=== PATIENT | female | born 2005 | race Two or more races ===

== ENCOUNTER 2024-10-12 19:48 | Observation (INO) | payer MEDICAID, SELFPAY ==
[2024-10-12 20:02] VITALS: BMI 27.3
[2024-10-12 20:10] VITALS: BP 112/63; PULSE 70; RESP 16; RESP 99; TEMP 36.9
[2024-10-12 20:16] VITALS: TEMP 36.9
== END 2024-10-12 20:52 | disposition home or self-care (01) ==
PROVIDERS: Admitting Provider Student in an Organized Health Care Education/Training Program; Visit Provider Student in an Organized Health Care Education/Training Program
DX: O36.8120 Decreased fetal movements, second trimester, not applicable or unspecified (principal); Z3A.26 26 weeks gestation of pregnancy
CPT/HCPCS: 59025; G0378

== ENCOUNTER 2024-11-22 08:38 | Outpatient (AMB) | payer MEDICAID, SELFPAY ==
[2024-11-22 08:44] VITALS: BP 111/74; PULSE 79; RESP 18; TEMP 36.2; O2SAT 98; BMI 28.3
--- NOTE | 2024-11-22 08:44 | AMB.OBINITIA ---
Vital Signs 11/22/24 08:44 Height 1.52 m Height Method Stated Weight 65.771 kg Weight Measurement Method Standing Scale BMI 28.3 BP 111/74 Blood Pressure Source Automatic Cuff Blood Pressure Location Left Upper Arm Position Sitting Respiration 18 Pulse 79 Pulse Source Monitor Temp 97.2 F Temp Source Oral Pulse Oximetry (%) 98 Oxygen Delivery Method Room Air Allergies/Home Meds Allergies & Medications Allergies No Known Allergies Allergy (Verified 11/22/24 08:45) Medication Reconciliation vits no.130-ferrous fum 27 mg iron-folic acid 800 mcg tablet ( Vitamin) 1 tab PO QDAY 10/12/24 [History Confirmed 11/22/24] Intake Visit Data Collection New Patient or Established: Established Patient (seen at [facility] within 3 years) Reason for Visit:: Seen by Clinical Staff ONLY (RN/MA): No Blood Coordinator Required: No Do You Feel Safe at Home: Yes Authorities Contacted: N/A PCP or OBGYN visit in last 3 months: Yes Date of Last PCP or OBGYN visit: 10/12/24 Hx Now: Yes Are you currently on any form of Control: No Last menstrual period: 03/16/24 Pain Present Currently: No Pain Scale Used: Sahu-Velasco/Numerical Pain scale:: 0 Smoking Status Smoking Status: Never smoker Questionnaires Covid-19 Vaccine Questionnaire Has patient been vacinated for Covid-19 Have you been vacinated for Covid-19: Yes PHQ-9 PHQ-2 Over the last 2 weeks, how often have you been bothered by any of the following problems? 1. Little interest or pleasure in doing things: not at all 2. Feeling down, depressed, or hopeless: not at all Total score: 0 PHQ-9 3. Trouble falling or staying asleep, or sleeping too much: Not at all 4. Feeling tired or having little energy: Not at all 5. Poor appetite or overeating: Not at all 6. Feeling bad about yourself - or that you are a failure or have let yourself or your family down: Not at all 7. Trouble concentrating on things, such as reading the newspaper or watching television: Not at all 8. Moving or speaking so slowly that other people could have noticed? - Or the opposite - being so fidgety or restless that you have been moving around a lot more than usual: not at all 9. Thoughts that you would be better off or of hurting yourself in some way: Not at all Total score: 0 If you checked off any problems, how difficult have these problems made it for you to do your work, take care of things at home, or get along with other people?: not difficult at all Source: Developed by Drs. Feng Leiva, Kari Oscar, Rafiq Ford and colleagues, with an educational krystal from [employer]. Depression screen completed yes Social History Living Situation History Marital Status: Lives With: Spouse Housing: House Tobacco History Smoking Status: Never smoker Alcohol History Alcohol Intake: Never Domestic Abuse History Do You Feel Safe at Home: Yes Past Medical History Past Medical History Have you ever been diagnosed with any of the following: History of Present Illness HPI Narrative 18-year-old 2 para 0 for first visit at [facility] OB clinic. Patient has been followed at [facility] care. Her first visit [facility] was at 11 weeks 3. Last period April 11, 2024. Estimated due date 09/18/2024. First ultrasound was in August patient was 19 weeks and this confirmed dates. And then patient had a 23-week ultrasound in September that also confirm dates. She denies social habits. Denies surgery. Denies chronic illness. Patient reports good movement. Denies contractions. Patient's thus far is significant for gestational diabetes. Patient has been following GDM diet and glucose monitoring 4 times a day. Patient reports good compliance with her glucoses. Reports that sugars are within limits 98% of the time. EFW is at the 28th percentile. Patient is O+, antibody screen negative, RPR nonreactive, rubella immune, hepatitis B negative, hep C negative, HIV negative, her GC and Chlamydia were negative. Drug screen negative. Last A1c 5.3. Screening and NIPT were negative. Denies labor signs OB Initial Visit OB Flowsheet OB Flowsheet Initial Weight: Not Recorded Date <del>?</del> EGA Weight Edema CTX Effacement BP Fundal ht Pres Dilation Effacement Station Visit Note Alb Glu FHR Mov 11/22/24 <del>?</del> 32w 1d 65.771 kg absent absent 111/74 31 cephalic 18-year-old 2 para 0 for first visit OB clinic. Patient has GDM diet-controlled. Blood sugars are within range 95% of the goal. Patient is a transfer from [facility]. Doing well. Reports movement. No OB complaints. Hemoglobin A1c today. Continue GDM diet. Continue with monitoring glucose 4 times a day. Schedule NST BPP weekly. Reviewed movement counts. 141 active Menstrual History Menstrual reliability: definite Flow: normal Menstrual regularity: regular Monthly: Yes Age at menarche: 11 On control pills at conception: No OB History : 2 Para: 0 Hx # Pregnancies: 0 Hx Total # of Abortions (Spontaneous & Elective): 1 # of Living Children: 0 Infection History & Risk Evaluation History of STDs: none HIV risk evaluation: low risk Hepatitis B risk evaluation: low risk Patient or partner has history of Genital Herpes: No Varicella/chicken pox status: immunized Genetic Screening & History Genetic Screening/Teratology Counseling - Includes patient, baby's father, or anyone in either family with: 1. Patient's age 35 years or older as of estimated date of delivery: No 2. Thalassemia (Wallisian, Fijian, Mediterranean, or Background); MCV less than 80: No 3. Neural Tube Defect (Meningomyelocele, Spina Bifida, or Anencephaly): No 4. Congenital Heart Defect: No 5. Down Syndrome: No 6. Rodney-Sachs (Ashkenazi Episcopal, Cajun, Nepali Lithuanian): No 7. Kiana Disease (Ashkenazi Episcopal): No 8. Familial Dysautonomia (Ashkenazi Episcopal): No 9. Sickle Cell Disease or Trait (): No 10. Hemophilia or other blood disorders: No 11. Muscular Dystrophy: No 12. Cystic Fibrosis: No 13. Patillas's Chorea: No 14. Mental Retardation/Autism: No 15. Other inherited genetic or chromosomal disorder: No 16. Maternal Metabolic Disorder (EG,TYPE 1 Diabetes, PKU): No 17. Patient or baby's father had a child with defects not listed above: No 18. Recurrent loss or a stillbirth: No 19. Medications (including supplements, vitamins, herbs or otc drugs)/illicit/recreational drugs/alcohol since last menstrual period: No 20. Any other: No Infection History 1. Live with someone with TB or exposed to TB: No 2. Rash or viral illness since last menstrual period: No 3. Hepatitis B,C: No Other (see comments) Source: [employer] Review of Systems Review of Systems Systems Reviewed: All systems reviewed, normal except as documented Exam General Limitations: no limitations General Appearance: alert, in no apparent distress, comfortable, cooperative, healthy appearing, well developed and well groomed ENT ENT exam: Present normal exam, normal oropharynx and mucous membranes moist Chest Chest inspection: Present normal inspection and symmetric chest wall rise Resp Respiratory exam: Present normal lung sounds bilaterally Card Cardiovascular exam: Present regular rate, normal rhythm and normal heart sounds Abdominal Abdominal exam: Present soft (fh:32, fht 141) and normal bowel sounds Psych Psychiatric exam: Present normal affect and normal mood Assessment & Plan Diagnosis / Problem List (1) Diet controlled gestational diabetes mellitus (GDM) in third trimester: Status: Acute (2) Encounter for supervision of other normal , third trimester: Status: Acute Additional Plan Follow Up: 2 Weeks (f/u ob check) Office Procedures OB Clinic LOC & Office Proc's Nursing/Assessment Patient Status: Established Patient OB Clinic Nursing Assessment: BP Monitoring, Medication Reconciliation, Update PMH in EMR and Vital Signs OB Clinic Coordination of Care: Consent,records obtained, informed consent, Education Simp Pt/Fam, Lab and Imaging orders and Staff clarify orders Established Patient Charge Established Patient Point Assignment: 90 Established Patient Point Charge: EP Level 3 (80-115)
== END 2024-11-22 09:03 | disposition home or self-care (01) ==
LOC: HODSOBC 08:38
PROVIDERS: PCP Advanced Practice Midwife; Referring Provider Advanced Practice Midwife; Supervising Provider Obstetrics & Gynecology; Visit Provider Advanced Practice Midwife
DX: O09.623 Supervision of young multigravida, third trimester (principal); O24.410 Gestational diabetes mellitus in pregnancy, diet controlled; Z3A.32 32 weeks gestation of pregnancy
CPT/HCPCS: 99213; G0463

== ENCOUNTER 2024-12-06 08:59 | Outpatient (AMB) | payer MEDICAID, SELFPAY ==
[2024-12-06 09:03] VITALS: BP 112/75; PULSE 97; RESP 18; TEMP 36.6; O2SAT 98; BMI 28.6
--- NOTE | 2024-12-06 09:03 | AMB.OBVISIT ---
Vital Signs 12/06/24 09:03 Height 1.52 m Height Method Stated Weight 66.224 kg Weight Measurement Method Standing Scale BMI 28.6 BP 112/75 Blood Pressure Source Automatic Cuff Blood Pressure Location Right Upper Arm Position Sitting Respiration 18 Pulse 97 Pulse Source Monitor Temp 97.8 F Temp Source Temporal Artery Scan Pulse Oximetry (%) 98 Oxygen Delivery Method Room Air Allergies/Home Meds Allergies & Medications Allergies No Known Allergies Allergy (Verified 12/06/24 09:04) Medication Reconciliation vits no.130-ferrous fum 27 mg iron-folic acid 800 mcg tablet ( Vitamin) 1 tab PO QDAY 10/12/24 [History Confirmed 12/06/24] Intake Visit Data Collection New Patient or Established: Established Patient (seen at [facility] within 3 years) Reason for Visit:: OBC Do You Feel Safe at Home: Yes Authorities Contacted: N/A PCP or OBGYN visit in last 3 months: Yes Pain Present Currently: No Smoking Status Smoking Status: Never smoker Questionnaires Covid-19 Vaccine Questionnaire Has patient been vacinated for Covid-19 Have you been vacinated for Covid-19: Yes PHQ-9 PHQ-2 Over the last 2 weeks, how often have you been bothered by any of the following problems? 1. Little interest or pleasure in doing things: not at all 2. Feeling down, depressed, or hopeless: not at all Total score: 0 PHQ-9 8. Moving or speaking so slowly that other people could have noticed? - Or the opposite - being so fidgety or restless that you have been moving around a lot more than usual: not at all Source: Developed by Drs. Feng Leiva, Kari Oscar, Rafiq Ford and colleagues, with an educational krystal from [employer]. Depression screen completed yes Social History Living Situation History Lives With: Spouse Housing: House Tobacco History Smoking Status: Never smoker Alcohol History Alcohol Intake: Never Domestic Abuse History Do You Feel Safe at Home: Yes Past Medical History Past Medical History Have you ever been diagnosed with any of the following: Visit OB Visit Log OB Flowsheet Initial Weight: Not Recorded Date <del>?</del> EGA Weight Edema CTX Effacement BP Fundal ht Pres Dilation Effacement Station Visit Note Alb Glu FHR Mov 11/22/24 <del>?</del> 32w 1d 65.771 kg absent absent 111/74 31 cephalic 18-year-old 2 para 0 for first visit OB clinic. Patient has GDM diet-controlled. Blood sugars are within range 95% of the goal. Patient is a transfer from [facility]. Doing well. Reports movement. No OB complaints. Hemoglobin A1c today. Continue GDM diet. Continue with monitoring glucose 4 times a day. Schedule NST BPP weekly. Reviewed movement counts. 141 active 12/06/24 <del>?</del> 34w 1d 66.224 kg absent absent 112/75 34 cephalic compliant with week nst/bpp for + gdm, sugars at goal 95%, continue fkc bid, continue GDM diet, walk 40 minute daily, continue PNV, c/o + URI. GBS NV, no PTL complaints 147 active YOSEPH Calculator Estimated Delivery Date Method Current WG Current Estimate 01/16/25 Ultrasound #1 34w 1d Other Estimates 01/16/25 LMP (Certain) 34w 1d Assessment & Plan Diagnosis / Problem List (1) Encounter for supervision of high risk in third trimester, antepartum: Status: Acute (2) Diet controlled gestational diabetes mellitus (GDM) in third trimester: Status: Acute Plan Continue GDM diet. Increase walking 40 minutes a day. Continue glucose monitoring. Continue weekly NST BPP. kick count twice daily. labor precautions reviewed. GBS next visit Additional Plan Follow Up: 2 Weeks (OBC and GBS) Office Procedures OB Clinic LOC & Office Proc's Nursing/Assessment Patient Status: Established Patient OB Clinic Nursing Assessment: Medication Reconciliation, Update PMH in EMR and Vital Signs OB Clinic Coordination of Care: Complex Care and Chronic Disease 1-5, Education Complex Pt/Fam and Staff clarify orders Established Patient Charge Established Patient Point Assignment: 85 Established Patient Point Charge: EP Level 3 (80-115)
== END 2024-12-06 09:21 | disposition home or self-care (01) ==
LOC: HODSOBC 08:59
PROVIDERS: PCP Obstetrics & Gynecology; Referring Provider Obstetrics & Gynecology; Supervising Provider Obstetrics & Gynecology; Visit Provider Obstetrics & Gynecology
DX: O09.623 Supervision of young multigravida, third trimester (principal); O09.893 Supervision of other high risk pregnancies, third trimester; O24.410 Gestational diabetes mellitus in pregnancy, diet controlled; Z3A.34 34 weeks gestation of pregnancy
CPT/HCPCS: 99213; G0463

== ENCOUNTER 2024-12-20 09:12 | Outpatient (AMB) | payer MEDICAID, SELFPAY ==
[2024-12-20 09:46] VITALS: BP 118/74; PULSE 85; RESP 18; TEMP 36.2; O2SAT 99; BMI 29.5
--- NOTE | 2024-12-20 09:46 | OBCLNT_ITS ---
Vital Signs 12/20/24 09:46 Height 1.52 m Height Method Stated Weight 68.266 kg Weight Measurement Method Standing Scale BMI 29.5 BP 118/74 Blood Pressure Source Automatic Cuff Blood Pressure Location Left Upper Arm Position Sitting Respiration 18 Pulse 85 Pulse Source Monitor Temp 97.2 F Temp Source Oral Pulse Oximetry (%) 99 Oxygen Delivery Method Room Air Allergies/Home Meds Allergies & Medications Allergies No Known Allergies Allergy (Verified 12/20/24 09:47) Medication Reconciliation vits no.130-ferrous fum 27 mg iron-folic acid 800 mcg tablet ( Vitamin) 1 tab PO QDAY 10/12/24 [History Confirmed 12/20/24] Intake Visit Data Collection New Patient or Established: Established Patient (seen at [facility] within 3 years) Reason for Visit:: OBC Seen by Clinical Staff ONLY (RN/MA): No Eyeglass Frames Polisher Required: No Do You Feel Safe at Home: Yes Authorities Contacted: N/A PCP or OBGYN visit in last 3 months: Yes Date of Last PCP or OBGYN visit: 12/14/24 Hx Now: Yes Are you currently on any form of Control: No Pain Present Currently: No Pain Scale Used: Sahu-Velasco/Numerical Pain scale:: 0 Smoking Status Smoking Status: Never smoker Questionnaires Covid-19 Vaccine Questionnaire Has patient been vacinated for Covid-19 Have you been vacinated for Covid-19: Yes PHQ-9 PHQ-2 Over the last 2 weeks, how often have you been bothered by any of the following problems? 1. Little interest or pleasure in doing things: not at all 2. Feeling down, depressed, or hopeless: not at all Total score: 0 PHQ-9 3. Trouble falling or staying asleep, or sleeping too much: Not at all 4. Feeling tired or having little energy: Not at all 5. Poor appetite or overeating: Not at all 6. Feeling bad about yourself - or that you are a failure or have let yourself or your family down: Not at all 7. Trouble concentrating on things, such as reading the newspaper or watching television: Not at all 8. Moving or speaking so slowly that other people could have noticed? - Or the opposite - being so fidgety or restless that you have been moving around a lot more than usual: not at all 9. Thoughts that you would be better off or of hurting yourself in some way: Not at all Total score: 0 If you checked off any problems, how difficult have these problems made it for you to do your work, take care of things at home, or get along with other people?: not difficult at all Source: Developed by Drs. Feng Leiva, Kari Oscar, Rafiq Ford and colleagues, with an educational krystal from [employer]. Depression screen completed yes Social History Living Situation History Lives With: Spouse Housing: House Tobacco History Smoking Status: Never smoker Second Hand Smoke Exposure: No Alcohol History Alcohol Intake: Never Domestic Abuse History Do You Feel Safe at Home: Yes Care OB Visit Log OB Flowsheet Initial Weight: Not Recorded Date -?-?-?-?-?-?-?-?-?-?-?-?- EGA Weight Edema CTX Effacement BP Fundal ht Pres Dilation Effacement Station Visit Note Alb Glu FHR Mov 11/22/24 -?-?-?-?-?-?-?-?-?-?-?-?- 32w 1d 65.771 kg absent absent 111/74 31 cephalic 18-year-old 2 para 0 for first visit OB clinic. Patient has GDM diet-controlled. Blood sugars are within range 95% of the goal. Patient is a transfer from [facility]. Doing well. Reports movement. No OB complaints. Hemoglobin A1c today. Continue GDM diet. Continue with monitoring glucose 4 times a day. Schedule NST BPP weekly. Reviewed movement counts. 141 active 12/06/24 -?-?-?-?-?-?-?-?-?-?-?-?- 34w 1d 66.224 kg absent absent 112/75 34 cephalic compliant with week nst/bpp for + gdm, sugars at goal 95%, continue fkc bid, continue GDM diet, walk 40 minute daily, continue PNV, c/o + URI. GBS NV, no PTL complaints 147 active 12/20/24 -?-?-?-?-?-?-?-?-?-?-?-?- 36w 1d 68.266 kg absent absent 118/74 35 cephalic fetus active, no c/o labor,no leaking,no bleeding. + GDM/diet, continue week NST/BPP, fkc bid, GBS today fetus active, no c/o labor,n o leaking,no bleeding. + GDM/diet, continue week NST/BPP, fkc bid, GBS today, sugar at goal 90%, IOL 01/09/25 156 active YOSEPH Calculator Estimated Delivery Date Method Current WG Current Estimate 01/16/25 Ultrasound #1 36w 1d Other Estimates 01/16/25 LMP (Certain) 36w 1d Comments: 19 yo . LMP 04/11/25. EDC 01/16/25. GDM/diet, week NST/BPP O+,abs-,rpr::nr, rub imm, HBSAG-,HIV-, HC-, GC/CT-, UT-, abn 1 hr gtt, 3 hr gtt high Assessment & Plan Diagnosis / Problem List (1) Encounter for supervision of high risk in third trimester, antepartum: Status: Acute (2) Diet controlled gestational diabetes mellitus (GDM) in third trimester: Status: Acute Additional Assessment GBS, schedule IOL 01/09,continue GDM diet and week NST/BPP, fkc bid. rtc 1 week Additional Plan Follow Up: 1 Week (OBC) Office Procedures OB Clinic LOC & Office Proc's Nursing/Assessment Patient Status: Established Patient OB Clinic Nursing Assessment: BP Monitoring, Medication Reconciliation, Update PMH in EMR and Vital Signs OB Clinic Coordination of Care: Consent,records obtained, informed consent, Lab and Imaging orders and Staff clarify orders Special Needs: Heart tones Established Patient Charge Established Patient Point Assignment: 105 Established Patient Point Charge: EP Level 3 (80-115)
[2024-12-20 10:50] LABS: Bilirubin,Urine Clinitek Negative (Negative); Blood,Urine Clinitek Negative (Negative); Glucose, Urine Clinitek Negative (Negative); Ketones,Urine Clinitek Negative (Negative); Leukocyte Esterase,Urine Clin Negative (Negative); Nitrite,Urine Clinitek Negative (Negative); Protein,Urine Clinitek Negative (Neg - Trace)
== END 2024-12-20 10:05 | disposition home or self-care (01) ==
LOC: HODSOBC 09:12
PROVIDERS: PCP Advanced Practice Midwife; Referring Provider Advanced Practice Midwife; Supervising Provider Advanced Practice Midwife; Visit Provider Advanced Practice Midwife
DX: O09.623 Supervision of young multigravida, third trimester (principal); O09.893 Supervision of other high risk pregnancies, third trimester; O24.410 Gestational diabetes mellitus in pregnancy, diet controlled; Z3A.36 36 weeks gestation of pregnancy
CPT/HCPCS: 81001; 99213; G0463

== ENCOUNTER 2024-12-27 09:00 | Outpatient (AMB) | payer MEDICAID, SELFPAY ==
[2024-12-27 09:23] VITALS: BP 122/76; PULSE 79; RESP 14; TEMP 36.8; O2SAT 96; BMI 30.1
--- NOTE | 2024-12-27 09:23 | OBCLNT_ITS ---
Vital Signs 12/27/24 09:23 Height 1.52 m Height Method Stated Weight 70.023 kg Weight Measurement Method Standing Scale BMI 30.1 BP 122/76 Blood Pressure Source Automatic Cuff Blood Pressure Location Left Upper Arm Position Sitting Respiration 14 Pulse 79 Pulse Source Monitor Temp 98.2 F Temp Source Oral Pulse Oximetry (%) 96 Oxygen Delivery Method Room Air Allergies/Home Meds Allergies & Medications Allergies No Known Allergies Allergy (Verified 12/27/24 09:25) Medication Reconciliation vits no.130-ferrous fum 27 mg iron-folic acid 800 mcg tablet ( Vitamin) 1 tab PO QDAY 10/12/24 [History Confirmed 12/27/24] Intake Visit Data Collection New Patient or Established: Established Patient (seen at [facility] within 3 years) Reason for Visit:: CARE Seen by Clinical Staff ONLY (RN/MA): No 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 1. Little interest or pleasure in doing things: not at all 2. Feeling down, depressed, or hopeless: not at all Total score: 0 PHQ-9 3. Trouble falling or staying asleep, or sleeping too much: Not at all 4. Feeling tired or having little energy: Not at all 5. Poor appetite or overeating: Not at all 6. Feeling bad about yourself - or that you are a failure or have let yourself or your family down: Not at all 7. Trouble concentrating on things, such as reading the newspaper or watching television: Not at all 8. Moving or speaking so slowly that other people could have noticed? - Or the opposite - being so fidgety or restless that you have been moving around a lot more than usual: not at all 9. Thoughts that you would be better off or of hurting yourself in some way: Not at all Total score: 0 Source: Developed by Drs. Feng Leiva, Kari Oscar, Rafiq Ford and colleagues, with an educational krystal from [employer]. Depression screen completed yes Social History Living Situation History Lives With: Spouse Housing: House Tobacco History Smoking Status: Never smoker Second Hand Smoke Exposure: No Alcohol History Alcohol Intake: Never Domestic Abuse History Do You Feel Safe at Home: Yes Care OB Visit Log OB Flowsheet Initial Weight: Not Recorded Date -?-?-?-?-?-?-?-?-?-?-?-?- EGA Weight Edema CTX Effacement BP Fundal ht Pres Dilation Effacement Station Visit Note Alb Glu FHR Mov 11/22/24 -?-?-?-?-?--?-?-?-?-?-?-?- 32w 1d 65.771 kg absent absent 111/74 31 cephalic 18-year-old 2 para 0 for first visit OB clinic. Patient has GDM diet-controlled. Blood sugars are within range 95% of the goal. Patient is a transfer from [facility]. Doing well. Reports movement. No OB complaints. Hemoglobin A1c today. Continue GDM diet. Continue with monitoring glucose 4 times a day. Schedule NST BPP weekly. Reviewed movement counts. 141 active 12/06/24 -?-?-?-?-?-?-?-?-?-?-?-?- 34w 1d 66.224 kg absent absent 112/75 34 cephalic compliant with week nst/bpp for + gdm, sugars at goal 95%, continue fkc bid, continue GDM diet, walk 40 minute daily, continue PNV, c/o + URI. GBS NV, no PTL complaints 147 active 12/20/24 -?-?-?-?-?-?-?-?-?-?-?-?- 36w 1d 68.266 kg absent absent 118/74 35 cephalic fetus active, no c/o labor,no leaking,no bleeding. + GDM/diet, continue week NST/BPP, fkc bid, GBS today fetus active, no c/o labor,n o leaking,no bleeding. + GDM/diet, continue week NST/BPP, fkc bid, GBS today, sugar at goal 90%, IOL 01/09/25 156 active 12/27/24 -?-?-?-?-?-?-?-?-?-?-?-?- 37w 1d 70.023 kg absent absent 122/76 cephalic sugars at goal 90%, fetus active, no complaints of leaking or bleeding. compliant with GDM diet and week NST/BPP.GBS-, continue PNV. discuss labor precaution and fkc bid. RTC 1 week, IOL 01/10 sugars at goal 90%, fetus ac tive, no complaints of leaking or bleeding. compliant with GDM diet and week NST/BPP.GBS-, continue PNV. discuss labor precaution and fkc bid. RTC 1 week, IOL 01/10. 156 active YOSEPH Calculator Estimated Delivery Date Method Current WG Current Estimate 01/16/25 Ultrasound #1 37w 1d Other Estimates 01/16/25 LMP (Certain) 37w 1d Comments: 19 yo . EDC 01/16/25. GBS-, GDM diet control, week NST/BPP, O+,abs-, RPR::NR, GC/CT-HIV-,HC-HBSAG- Office Procedures OB Clinic LOC & Office Proc's Nursing/Assessment Patient Status: Established Patient OB Clinic Nursing Assessment: Medication Reconciliation, Update PMH in EMR and Vital Signs OB Clinic Coordination of Care: Complex Care and Chronic Disease 1-5, Consent ,records obtained, informed consent, Education Simp Pt/Fam, Lab and Imaging orders, Results/Orders obtained and Staff clarify orders Special Needs: Heart tones Established Patient Charge Established Patient Point Assignment: 135 Established Patient Point Charge: EP Level 4 (120-155) Assessment & Plan Diagnosis / Problem List (1) Encounter for supervision of high risk in third trimester, antepartum: Status: Acute (2) Diet controlled gestational diabetes mellitus (GDM) in third trimester: Status: Acute Plan discuss labor precaution, fkc bid, continue GDM diet and glucose monitoring, continue week NST/BPP, IOL 01/09/25, walk 40 minute daily reviewed. increase fluid. RTC 1 week Additional Plan Follow Up: 1 Week (obc)
== END 2024-12-27 09:47 | disposition home or self-care (01) ==
LOC: HODSOBC 09:00
PROVIDERS: Supervising Provider Advanced Practice Midwife; Visit Provider Advanced Practice Midwife
DX: O09.623 Supervision of young multigravida, third trimester (principal); O09.893 Supervision of other high risk pregnancies, third trimester; Z3A.37 37 weeks gestation of pregnancy; O24.410 Gestational diabetes mellitus in pregnancy, diet controlled
CPT/HCPCS: 81001; 99214; G0463

== ENCOUNTER 2025-01-04 09:02 | Outpatient (AMB) | payer MEDICAID, SELFPAY ==
--- NOTE | 2025-01-04 09:09 | OBCLNT_ITS ---
Vital Signs 01/04/25 09:10 Height 1.52 m Height Method Stated Weight 71.441 kg Weight Measurement Method Standing Scale BMI 30.9 BP 132/83 H Blood Pressure Source Automatic Cuff Blood Pressure Location Left Upper Arm Position Sitting Respiration 17 Pulse 93 Pulse Source Monitor Temp 97.7 F Temp Source Temporal Artery Scan Pulse Oximetry (%) 98 Oxygen Delivery Method Room Air Allergies/Home Meds Allergies & Medications Allergies No Known Allergies Allergy (Verified 01/04/25 09:10) Medication Reconciliation vits no.130-ferrous fum 27 mg iron-folic acid 800 mcg tablet ( Vitamin) 1 tab PO QDAY 10/12/24 [History Confirmed 12/27/24] Intake Visit Data Collection New Patient or Established: Established Patient (seen at [facility] within 3 years) Reason for Visit:: OBC Seen by Clinical Staff ONLY (RN/MA): No 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 1. Little interest or pleasure in doing things: not at all 2. Feeling down, depressed, or hopeless: not at all Total score: 0 PHQ-9 3. Trouble falling or staying asleep, or sleeping too much: Not at all 4. Feeling tired or having little energy: Not at all 5. Poor appetite or overeating: Not at all 6. Feeling bad about yourself - or that you are a failure or have let yourself or your family down: Not at all 7. Trouble concentrating on things, such as reading the newspaper or watching television: Not at all 8. Moving or speaking so slowly that other people could have noticed? - Or the opposite - being so fidgety or restless that you have been moving around a lot more than usual: not at all 9. Thoughts that you would be better off or of hurting yourself in some way: Not at all Total score: 0 If you checked off any problems, how difficult have these problems made it for you to do your work, take care of things at home, or get along with other people?: not difficult at all Source: Developed by Drs. Feng Leiva, Kari Oscar, Rafiq Ford and colleagues, with an educational krystal from [employer]. Depression screen completed yes Social History Living Situation History Lives With: Spouse Housing: House Tobacco History Smoking Status: Never smoker Second Hand Smoke Exposure: No Alcohol History Alcohol Intake: Never Domestic Abuse History Do You Feel Safe at Home: Yes Care OB Visit Log OB Flowsheet Initial Weight: Not Recorded Date -?-?-?-?-?-?-?-?-?-?-?-?- EGA Weight BP Alb Glu CTX Pres Fundal ht FHR Mov Dilation Station Effacement Hx Notes Visit Note 11/22/24 -?-?-?-?-?-?-?-?-?-?-?-?- 32w 1d 65.771 kg 111/74 absent cephalic 31 141 active 18-year-old 2 para 0 for first visit OB clinic. Patient has GDM diet-controlled. Blood sugars are within range 95% of the goal. Patient is a transfer from [facility]. Doing well. Reports movement. No OB complaints. Hemoglobin A1c today. Continue GDM diet. Continue with monitoring glucose 4 times a day. Schedule NST BPP weekly. Reviewed movement counts. 12/06/24 -?-?-?-?-?-?--?-?-?-?-?-?- 34w 1d 66.224 kg 112/75 absent cephalic 34 147 active compliant with week nst/bpp for + gdm, sugars at goal 95%, continue fkc bid, continue GDM diet, walk 40 minute daily, continue PNV, c/o + URI. GBS NV, no PTL complaints 12/20/24 -?-?-?-?-?-?-?-?-?-?-?-?- 36w 1d 68.266 kg 118/74 absent cephalic 35 156 active fetus active, no c/o labor,no leaking,no bleeding. + GDM/diet, continue week NST/BPP, fkc bid, GBS today fetus active, no c/o labor,n o leaking,no bleeding. + GDM/diet, continue week NST/BPP, fkc bid, GBS today, sugar at goal 90%, IOL 01/09/25 12/27/24 -?-?-?-?-?-?-?-?-?-?-?-?- 37w 1d 70.023 kg 122/76 absent cephalic 156 active sugars at goal 90%, fetus active, no complaints of leaking or bleeding. compliant with GDM diet and week NST/BPP.GBS-, continue PNV. discuss labor precaution and fkc bid. RTC 1 we ek, IOL 01/10 sugars at goal 90%, fetus ac tive, no complaints of leaking or bleeding. compliant with GDM diet and week NST/BPP.GBS-, continue PNV. discuss labor precaution and fkc bid. RTC 1 week, IOL 01/10. 01/04/25 -?-?-?-?-?-?-?-?-?-?-?-?- 38w 2d 71.441 kg 132/83 occasional cephalic 37 147 active per patient, sugars at goal 95%, compliant with GDM diet and weekly NST/BPP, fetus active, NST/BPP today, IOL scheduled for 01/09. patient will stop working 01/05/25 continue weekly NST/BPP, continue to monitor BS and GDM diet. FKC bid. discuss discussed IOL. labor precaution reviewed with PT, NST/BPP today, rtc 1 week. start disability 01/05/25 YOSEPH Calculator Estimated Delivery Date Method Current WG Current Estimate 01/16/25 Ultrasound #1 38w 2d Other Estimates 01/16/25 LMP (Certain) 38w 2d Office Procedures OB Clinic LOC & Office Proc's Nursing/Assessment Patient Status: Established Patient OB Clinic Nursing Assessment: Medication Reconciliation, Update PMH in EMR and Vital Signs OB Clinic Coordination of Care: Education Complex Pt/Fam, Consent,records obtained, informed consent, Lab and Imaging orders and Staff clarify orders Special Needs: Heart tones Established Patient Charge Established Patient Point Assignment: 110 Established Patient Point Charge: EP Level 3 (80-115) Assessment & Plan Diagnosis / Problem List (1) Encounter for supervision of high risk in third trimester, antepartum: Status: Acute (2) Diet controlled gestational diabetes mellitus (GDM) in third trimester: Status: Acute Plan labor precaution review with patient. fkc bid, continue to monitor sugar and log, continue GDM diet. review IOL, NST/BPP today. RTC 1 week. IOL 01/09 Additional Plan Follow Up: 1 Week (obc)
[2025-01-04 09:10] VITALS: BP 132/83; PULSE 93; RESP 17; TEMP 36.5; O2SAT 98; BMI 30.9
== END 2025-01-04 10:18 | disposition home or self-care (01) ==
LOC: HODSOBC 09:02
PROVIDERS: Supervising Provider Advanced Practice Midwife; Visit Provider Advanced Practice Midwife
DX: O09.623 Supervision of young multigravida, third trimester (principal); O09.893 Supervision of other high risk pregnancies, third trimester; Z3A.38 38 weeks gestation of pregnancy; O24.410 Gestational diabetes mellitus in pregnancy, diet controlled
CPT/HCPCS: 99213; G0463

== ENCOUNTER 2025-01-04 09:53 | Outpatient (RCR) | payer MEDICAID, SELFPAY ==
--- NOTE | 2024-11-30 08:50 | XR_ITS ---
Examination: Biophysical profile, ultrasound Date and time of exam: November 30, 2024 0835 hours INDICATIONS: Diagnosis gestational diabetes Technique: Multiple transabdominal sonographic images of the pelvis abdomen obtained. Attention is directed to the breathing movement, gross body movement, amniotic fluid volume and tone. Findings: Amniotic fluid index 11.2 cm Total biophysical profile is 8 of 8. breathing movement is 2. Gross body movement is 2. tone is 2. Qualitative amniotic fluid volume is 2 Impression: Biophysical profile is 8 of 8.
[2024-11-30 09:11] VITALS: BP 116/67; PULSE 85; RESP 16; TEMP 36.7
--- NOTE | 2024-12-07 08:42 | XR_ITS ---
Examination: Biophysical profile, ultrasound Date and time of exam: December 07, 2024 0846 hours INDICATIONS: Diagnosis gestational diabetes Technique: Multiple transabdominal sonographic images of the pelvis abdomen obtained. Attention is directed to the breathing movement, gross body movement, amniotic fluid volume and tone. Findings: Amniotic fluid index 10.3 cm Total biophysical profile is 8 of 8. breathing movement is 2. Gross body movement is 2. tone is 2. Qualitative amniotic fluid volume is 2 Impression: Biophysical profile is 8 of 8.
[2024-12-07 09:12] VITALS: BP 117/73; PULSE 78; RESP 16
--- NOTE | 2024-12-14 10:15 | XR_ITS ---
Examination: Biophysical profile, ultrasound Date and time of exam: December 14, 2024 1028 hours INDICATIONS: Diagnosis gestational diabetes Technique: Multiple transabdominal sonographic images of the pelvis abdomen obtained. Attention is directed to the breathing movement, gross body movement, amniotic fluid volume and tone. Findings: Amniotic fluid index 16.7 cm Total biophysical profile is 8 of 8. breathing movement is 2. Gross body movement is 2. tone is 2. Qualitative amniotic fluid volume is 2 Impression: Biophysical profile is 8 of 8.
[2024-12-14 10:54] VITALS: BP 114/68; PULSE 64; RESP 16; TEMP 36.7
--- NOTE | 2024-12-21 10:13 | XR_ITS ---
Examination: Biophysical profile, ultrasound Date and time of exam: December 21, 2024 1050 hours INDICATIONS: Diagnosis gestational diabetes Technique: Multiple transabdominal sonographic images of the pelvis abdomen obtained. Attention is directed to the breathing movement, gross body movement, amniotic fluid volume and tone. Findings: Amniotic fluid index 9.3 cm Total biophysical profile is 8 of 8. breathing movement is 2. Gross body movement is 2. tone is 2. Qualitative amniotic fluid volume is 2 Impression: Biophysical profile is 8 of 8.
[2024-12-21 11:28] VITALS: BP 105/57; PULSE 74; RESP 16; TEMP 36.7
--- NOTE | 2024-12-28 10:19 | XR_ITS ---
Examination: Biophysical profile, ultrasound Date and time of exam: December 28, 2024 1030 hours INDICATIONS: Diagnosis gestational diabetes Technique: Multiple transabdominal sonographic images of the pelvis abdomen obtained. Attention is directed to the breathing movement, gross body movement, amniotic fluid volume and tone. Findings: Amniotic fluid index 7.8 cm Total biophysical profile is 8 of 8. breathing movement is 2. Gross body movement is 2. tone is 2. Qualitative amniotic fluid volume is 2 Impression: Biophysical profile is 8 of 8.
[2024-12-28 10:47] VITALS: BP 116/70; PULSE 74; RESP 16; TEMP 36.6
--- NOTE | 2025-01-04 09:59 | XR_ITS ---
Examination: Biophysical profile, ultrasound Date and time of exam: January 04, 2025 1016 hours INDICATIONS: Diagnosis gestational diabetes Technique: Multiple transabdominal sonographic images of the pelvis abdomen obtained. Attention is directed to the breathing movement, gross body movement, amniotic fluid volume and tone. Findings: Amniotic fluid index 8.1 cm Total biophysical profile is 8 of 8. breathing movement is 2. Gross body movement is 2. tone is 2. Qualitative amniotic fluid volume is 2 Impression: Biophysical profile is 8 of 8.
[2025-01-04 11:10] VITALS: BP 117/73; PULSE 80; RESP 18
== END 2025-01-04 23:59 | disposition home or self-care (01) ==
LOC: S4S1 09:53
PROVIDERS: Referring Provider Advanced Practice Midwife; Visit Provider Advanced Practice Midwife
DX: O24.410 Gestational diabetes mellitus in pregnancy, diet controlled (principal); O09.93 Supervision of high risk pregnancy, unspecified, third trimester; Z3A.38 38 weeks gestation of pregnancy
CPT/HCPCS: 59025; 76819

== ENCOUNTER 2025-01-09 09:23 | Inpatient (IN) | payer MEDICAID, SELFPAY ==
[2025-01-09] VITALS (14 sets, daily range): BP systolic 91–126; BP diastolic 53–70; PULSE 68–93; TEMP 36.4–36.8; BMI 29.7
--- NOTE | 2025-01-09 10:06 | XR_ITS ---
Examination: Complete OB ultrasound greater than 14 weeks Date and time of exam: January 09, 2025 1032 hours INDICATIONS: Labor induction today, unknown presentation and weight Findings: Viable intrauterine single fetus with single amniotic sac presentation Vertex spine anterior Cardiac motion 160 bpm Placenta anterior grade 2 Umbilical cord insertion seen Amniotic fluid index 5.2 cm Cervix not visualized Ovaries obscured by bowel gas. Composite estimated gestational age based on BPD, head circumference, abdominal circumference, femur length is 37 weeks 6 days Estimated weight 3360 mg. Survey of intracranial anatomy, spinal anatomy, abdominal anatomy, four-chamber heart performed with no abnormalities identified. Impression: Viable intrauterine gestation vertex presentation Estimated weight 3360 g.
[2025-01-09 11:01] LABS: Basophils % (Auto) 0 % (0-2.5); Eosinophils % (Auto) 1 % (0-10); Hematocrit 36.8 % (36.0-46.0); Hemoglobin 13.1 g/dL (12.0-16.0); Immature Granulocytes % (Auto) 1 % (0-0); Immature Granulocytes Auto 0.05 Thou/mm3 (0.00-0.00); Lymphocytes # (Auto) 1.4 Thou/mm3 (1.0-4.8); Lymphocytes % (Auto) 23 % (10-50); Mean Corpuscular HGB Conc 35.6 g/dl (31.0-37.0); Mean Corpuscular Hemoglobin 28.2 pg (25.0-35.0); Mean Corpuscular Volume 79 fL (80-100); Monocytes # (Auto) 0.5 Thou/mm3 (0.0-0.8); Monocytes % (Auto) 8 % (0-12); Neutrophils # (Auto) 4.2 Thou/mm3 (1.8-7.7); Neutrophils % (Auto) 67 % (37-80); Nucleated Red Blood Cell % 0 /100 WBC (0); Platelet Count 130 Thou/mm3 (140-440); RDW Standard Deviation 43.2 fL (36.4-46.3); Red Blood Count 4.65 Miln/mm3 (4.00-5.20); White Blood Count 6.3 Thou/mm3 (4.5-11.0)
[2025-01-09 11:29] LABS: Syphilis Nonreactive (Nonreactive)
[2025-01-09] MEDS: DINOPROSTONE 10 MG VAG.SUPP VAGINAL (11:30)
--- NOTE | 2025-01-09 13:32 | PD.LDHP ---
Documentation for date of: 01/09/25 OB Labor/Induct. HPI History of Present Illness Chief complaint: induction : 2 Para: 0 Term pregnancies: 0 pregnancies: 0 Living children: 0 History of Abortions: Spontaneous and Elective: 1 History of Vaginal deliveries: 0 History of sections: No History of : No Date of last menstrual period: 04/11/24 YOSEPH: 01/16/25 Gestational Age (weeks): 39 Gestational Age (days): 0 Gestational age based on last menstrual period: 39 History of present illness: 18-year-old 2 para 0 admit to labor and delivery for induction of labor. History of GDM on diet. Good control. Patient's last period was April 20, 2024. Estimated due date is January 16, 2025. Patient unsure dates. First ultrasound was August 23. Patient was 19 weeks and this confirmed dates and patient had a 23-week anatomy scan as well and that also showed normal anatomy. Denies social habits. Denies surgery. Denies chronic illness. Patient is O+, antibody screen negative, RPR nonreactive, rubella immune, hepatitis B negative, HIV negative, hep C negative, GC and Chlamydia were negative. Patient had abnormal 1 hour and 3-hour was abnormal. NIPT and carrier screens were all normal. GBS negative. And patient's anatomy scan showed normal anatomy. History of Present Dating criteria: LMP confirmed by 1st trimester US Adequate Care: Yes Ultrasounds: normal 1st trimester US and normal mid trimester US Obstetrical complications: gestational diabetes Medical complications: none Labs Labs: Positive: Rubella Titre, Negative: RPR, Hepatitis B, HIV, Chlamydia, Gonorrhea and Group Beta Strep and Unknown: Herpes Type 1, Herpes Type 2 and Covid-19 Review of Systems Review of Systems Systems Reviewed: All systems reviewed, normal except as documented Past Medical History Surgical History SURGICAL: Negative Section Meds Home Medications and Allergies Home Medications ?Medication ?Instructions ?Recorded ?Confirmed ?Type vits no.130-ferrous fum 1 tab PO QDAY 10/12/24 01/09/25 History 27 mg iron-folic acid 800 mcg tablet ( Vitamin) Allergies Allergy/AdvReac Type Severity Reaction Status Date / Time No Known Allergies Allergy Verified 01/09/25 10:01 OB Exam Physical Exam Vital signs: Temp Pulse BP 97.6 F 70 98/53 L 01/09/25 09:25 01/09/25 13:09 01/09/25 13:09 Narrative: Alert and oriented. Normal heart rate rhythm. Lungs clear no wheezes. Gravid abdomen. Gynecoid pelvis. Estimated weight 7 and half pounds. EFW on admission showed vertex presentation and the baby was weighing 3300 g. Exam on admission was long closed. Bag water intact. 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
[2025-01-10] VITALS (32 sets, daily range): BP systolic 88–131; BP diastolic 52–80; PULSE 61–103; RESP 19; TEMP 36.4–37.1
[2025-01-10] MEDS: MISOPROSTOL 50 mCg TABLET PO ×4 (01:24→14:55)
--- NOTE | 2025-01-10 08:03 | PD.LDPN ---
Documentation for date of: 01/10/25 OB Labor Progress Note Pain Control Pain control: tolerating well Pelvic Exam Dilation (cm): 1 Effacement (%): 60 station: -3 Amniotic membrane status: Intact Contractions Monitor mode: External Contraction frequency: 5-7 Contraction intensity: Mild Status status: Category l Assessment and Plan Plan OB labor note: continuous present management CNM Management MD Consulted (describe details below): Yes
[2025-01-10] MEDS: RINGERS LACTATED 1000 ML 1,000 ML 100 ML IV (18:31)
[2025-01-10] MEDS: OXYTOCIN in NS 30 units 30 UNIT/500 ML BAG IV (19:45)
[2025-01-11] VITALS (78 sets, daily range): BP systolic 98–134; BP diastolic 52–99; PULSE 67–120; RESP 14–23; TEMP 36.7–37.9; O2SAT 94–99
[2025-01-11] MEDS: RINGERS LACTATED 1000 ML 1,000 ML 100 ML IV ×2 (04:10→10:22)
--- NOTE | 2025-01-11 06:46 | PD.LDPN ---
Documentation for date of: 01/10/25 OB Labor Progress Note Pain Control Pain control: tolerating well Pelvic Exam Dilation (cm): 2 Effacement (%): 80 station: -2 Amniotic membrane status: Ruptured Contractions Monitor mode: Internal Contraction frequency: 1.5-5.5 Contraction pattern: Coupling Contraction intensity: Moderate Status status: Category l Assessment and Plan Assessment: induction ongoing Plan OB labor note: continuous present management
[2025-01-11] MEDS: Ampicillin Inj 2,000 MG in SODIUM CHLORIDE 0.9% (POP) 100 ML 100 MG IV ×3 (08:23→20:28)
[2025-01-11] MEDS: ACETAMINOPHEN 325 MG TABLET 650 MG PO (08:26)
--- NOTE | 2025-01-11 08:32 | PD.LDPN ---
Documentation for date of: 01/11/25 OB Labor Progress Note Pelvic Exam Dilation (cm): 3 Effacement (%): 80 station: -2 Amniotic membrane status: Ruptured Contractions Monitor mode: Internal Contraction frequency: 1.5-3 Contraction pattern: Coupling Contraction intensity: Moderate Status status: Category ll Assessment and Plan Plan OB labor note: continuous present management CNM Management MD Consulted (describe details below): Yes Details of MD consultation: temp increased to 99.8, increased baseline to 155, accels. mod variability, no cervical change. consult with
[2025-01-11] MEDS: GENTAMICIN/NS 80 MG IVPB 80 MG in PRE-MIXED 1 BAG 50 MG IV ×2 (09:08→22:18)
[2025-01-11] MEDS: ceFAZolin/D5W 2 GM IV 2 GM/100 ML BAG IV (10:42)
[2025-01-11] MEDS: METOCLOPRAMIDE INJ 5 MG/ML VIAL 2 ML 10 MG IVP (10:42)
[2025-01-11] MEDS: FAMOTIDINE INJ 10 MG/ML VIAL 2 ML 20 MG IV (10:43)
--- NOTE | 2025-01-11 11:48 | PD.GYNPROC ---
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 Identity was confirmed by double identifiers and she was placed on the operating table. Spinal anesthesia was administered and she was positioned in the supine position. The abdomen and perineum were prepped in the usual sterile fashion and a Rojo catheter was placed to continuous drainage. Sterile drapes were applied. The incision site was tested for adequacy of anesthesia. A Pfannenstiel skin incision was made with a scalpel and carried to the subcutaneous fat up to the rectus fascia. The rectus fascia was incised on either side of the midline and the incisions were extended bilaterally. The fascia was gently dissected off the ventral surface of the rectus muscle both superiorly and inferiorly. The rectus bellies were gently in the midline and the peritoneum was identified and entered bluntly using the surgeon's finger. The peritoneal opening was now stretched to create an adequate opening for access to the uterus. Rich O-ring retractor was placed for adequate visualization. The anterior surface of the uterus was palpated. The bladder reflection was identified and a David Jj low transverse uterine incision was made in the lower uterine segment taking care to avoid the bladder. Uterine entry was accomplished bluntly and the opening was stretched to create adequate room. The amniotic membranes were now ruptured and clear amniotic fluid was released. The fetus was noted to be in the vertex position. The head was gently elevated out of the maternal pelvis and the cord was released and the rest of the shoulders and body were delivered by gentle fundal pressure. Umbilical cord was doubly clamped, divided and the infant was handed over to the waiting team. Cord gas samples were obtained. The placenta was delivered by gentle traction on the umbilical cord. The interior of the uterus was now thoroughly cleaned of all blood and debris and membranes. The hysterotomy angles were grasped by a pair of Allis clamps and the hysterotomy was closed using 1 Monocryl suture in 2 layers. The first layer was used to approximate the muscle in a running locked fashion, the second layer was used to approximate the thickness of the myometrium and uterine serosa in an imbricated manner. Once the repair was completed the hysterotomy was inspected and noted to be adequately hemostatic. The hysterotomy was once again inspected and hemostasis was noted to be satisfactory. The Rich retractor was now removed. The peritoneal edges were re approximated. The rectus muscles were re approximated. The rectus fascia was now repaired using 1-Stratafix suture in a running fashion. The subcutaneous layer was now copiously irrigated using warm normal saline. All bleeding points were cauterized using the Bovie. The subcutaneous fat was closed using 3-0 Vicryl. The skin was closed using 4-0 Monocryl in a subcuticular fashion. The skin was cleaned and a sterile dressing was applied. The patient was now undraped, the abdomen and back were thoroughly cleaned and she was transferred to the recovery room in a stable and awake condition. The patient tolerated the entire procedure well. No complications were encountered. All instrument, sponge and lap counts were correct x2. Estimated blood loss (ml): 600 Complications: none Surgical staff Operation Date: 01/11/25 11:15 <No data on this case meets the specified criteria> Diagnosis Discharge Diagnosis (1) Encounter for supervision of high risk in third trimester, antepartum: Status: Acute (2) Diet controlled gestational diabetes mellitus (GDM) in third trimester: Status: Acute (3) Chorioamnionitis: Status: Acute (4) delivery delivered: Status: Acute Problem List Completed Was Problem List Reviewed/Reconciled?: Yes
--- NOTE | 2025-01-11 11:51 | PD.LDDELS ---
Data (Morris) Data Hx Section: No : 2 Term: 0 : 0 Livin Abortions: Spontaneous & Theraputic: 1 Delivery Data (Morris) Labor Data ROM date: 01/10/25 ROM time: 18:15 Amniotic membrane rupture type: Artificial Amniotic fluid description: Clear Delivery Method Presentation: Vertex Anesthesia Type Anesthesia type: General
[2025-01-11] MEDS: CLINDAMYCIN 900MG IVPB 900 MG in PRE-MIXED 1 BAG 50 MG IV ×2 (13:11→23:09)
[2025-01-11] MEDS: KETOROLAC INJ 30 MG/ML VIAL IVP (17:31)
[2025-01-11] MEDS: OXYTOCIN in NS 20 units 20 UNIT/1,000 ML BAG 125 UNIT IV (20:32)
[2025-01-11] MEDS: IBUPROFEN TAB 400 MG TABLET 800 MG PO (22:18)
[2025-01-12 00:57] VITALS: BP 99/56; PULSE 92; RESP 22; TEMP 36.7; O2SAT 97
[2025-01-12] MEDS: Ampicillin Inj 2,000 MG in SODIUM CHLORIDE 0.9% (POP) 100 ML 100 MG IV ×4 (01:33→19:15)
[2025-01-12 04:16] VITALS: BP 95/58; PULSE 86; RESP 22; TEMP 36.3; O2SAT 96
[2025-01-12 05:56] LABS: Basophils % (Auto) 0 % (0-2.5); Eosinophils % (Auto) 0 % (0-10); Hematocrit 28.1 % (36.0-46.0); Hemoglobin 9.9 g/dL (12.0-16.0); Immature Granulocytes % (Auto) 1 % (0-0); Immature Granulocytes Auto 0.13 Thou/mm3 (0.00-0.00); Lymphocytes # (Auto) 1.3 Thou/mm3 (1.0-4.8); Lymphocytes % (Auto) 7 % (10-50); Mean Corpuscular HGB Conc 35.2 g/dl (31.0-37.0); Mean Corpuscular Hemoglobin 28.8 pg (25.0-35.0); Mean Corpuscular Volume 82 fL (80-100); Monocytes # (Auto) 1.6 Thou/mm3 (0.0-0.8); Monocytes % (Auto) 9 % (0-12); Neutrophils # (Auto) 15.7 Thou/mm3 (1.8-7.7); Neutrophils % (Auto) 84 % (37-80); Nucleated Red Blood Cell % 0 /100 WBC (0); Platelet Count 102 Thou/mm3 (140-440); RDW Standard Deviation 45.1 fL (36.4-46.3); Red Blood Count 3.44 Miln/mm3 (4.00-5.20); White Blood Count 18.8 Thou/mm3 (4.5-11.0)
[2025-01-12] MEDS: CLINDAMYCIN 900MG IVPB 900 MG in PRE-MIXED 1 BAG 50 MG IV ×3 (07:12→22:52)
--- NOTE | 2025-01-12 08:19 | PD.LDPPPRG ---
Subjective Subjective Interval history: The patient is a 19-year-old G1 now P1001 status post primary yesterday by Dr. Forrest. Patient had arrest of dilation at 3 cm. Baby had a category 2-3 tracing. She did spike 1 temperature. She is on amp gent and clinda. Patient is resting comfortably this morning up taking and has been up to the restroom. Her bleeding has been minimal. Exam Vital Signs Temp Pulse Resp BP Pulse Ox O2 Del Method O2 Flow Rate 97.4 F 86 22 H 95/58 L 96 Room Air 8 01/12/25 04:16 01/12/25 04:16 01/12/25 04:16 01/12/25 04:16 01/12/25 04:16 01/12/25 04:16 01/12/25 00:57 Narrative Exam Fundus firm nontender dressing in place clean dry and intact. Extremities show no significant edema or erythema. Objective Labs 01/12/25 05:30 Labs: Laboratory Results - last 24 hr 01/12/25 05:30 WBC 18.8 H D RBC 3.44 L Hgb 9.9 L D Hct 28.1 L MCV 82 MCH 28.8 MCHC 35.2 RDW Std Deviation 45.1 Plt Count 102 L D Neut % (Auto) 84 H Lymph % (Auto) 7 L Sargent % (Auto) 9 Eos % (Auto) 0 Baso % (Auto) 0 Neut # (Auto) 15.7 H Lymph # (Auto) 1.3 Sargent # (Auto) 1.6 H Eos # (Auto) 0.0 Baso # (Auto) 0.0 Immature Gran # (Auto) 0.13 H Absolute Nucleated RBC 0.00 Immature Gran % 1 H Nucleated RBC % 0 Assessment & Plan Problem List (1) Encounter for supervision of high risk in third trimester, antepartum: Status: Acute (2) Diet controlled gestational diabetes mellitus (GDM) in third trimester: Status: Acute (3) Chorioamnionitis: Status: Acute (4) delivery delivered: Problem details: Continue antibiotics till 24 hours afebrile. Recheck CBC as platelets are low at 102. Routine postop care. Status: Acute Time Spent With Patient Time: Total time spent is greater than 50% in coordination of care (as documented) at patient's floor/unit and/or counseling patient:
[2025-01-12 08:35] VITALS: BP 105/67; PULSE 102; RESP 16; TEMP 36.6; O2SAT 96
[2025-01-12] MEDS: KETOROLAC INJ 30 MG/ML VIAL IVP (08:38)
[2025-01-12] MEDS: DOCUSATE SOD 100 MG CAPSULE PO (08:38)
[2025-01-12] MEDS: GENTAMICIN/NS 80 MG IVPB 80 MG in PRE-MIXED 1 BAG 50 MG IV ×2 (09:27→21:52)
[2025-01-12 12:18] VITALS: BP 98/63; PULSE 91; RESP 16; TEMP 36.8
--- NOTE | 2025-01-12 12:45 | PC.SS ---
SS conducted bedside contact with the patient to address nursing referral indicating patient had history of anxiety and adjustment disorder. ?SS introduced self and role.? SS asked for permission to speak in front of family members. Patient agreed. SS discussed with patient basis of referral.? Patient denied having any current feelings of anxiety. Patient states she is anxious periodically and she did see a therapist two years ago. ?She was offered medication but declined at that time. Patient, currently, has no impairments. Patient has no current thoughts of harming herself or others.? No other history of documented mental health. FOBQuintin, resides in the home. This is patient?s 1st child. Sawyer, baby boy, Jean Claude, was born ?on [birth year] via . care was completed with Vania Lopez NP.? Patient was consistent with . Patient plans on breast feeding. Patient is aligned with [facility]. Patient does not possess [place] assistance or Food stamps. Patient denies history of drug/alcohol abuse, domestic violence. Patient has all resources to include: car seat, clothing and supplies.? convention services manager provided resources to include:? [facility] Network, Warm Line and community numbers. SS discussed in further detail emotional support and answered all questions appropriately. No further intervention required at this time, social problems specialist will be available to address any further concerns. SS updated bedside nurse. Patient to discharge home this morning.
[2025-01-12 15:30] VITALS: BP 95/62; PULSE 66; RESP 16; TEMP 36.8
[2025-01-12 19:40] VITALS: BP 102/64; PULSE 96; RESP 22; TEMP 36.8; O2SAT 96
[2025-01-13] MEDS: Ampicillin Inj 2,000 MG in SODIUM CHLORIDE 0.9% (POP) 100 ML 100 MG IV ×2 (01:45→08:09)
[2025-01-13 04:20] VITALS: BP 109/70; PULSE 88; RESP 20; TEMP 36.6; O2SAT 97
[2025-01-13 06:11] LABS: Basophils % (Auto) 0 % (0-2.5); Eosinophils % (Auto) 0 % (0-10); Hematocrit 28.7 % (36.0-46.0); Hemoglobin 9.6 g/dL (12.0-16.0); Immature Granulocytes % (Auto) 1 % (0-0); Immature Granulocytes Auto 0.15 Thou/mm3 (0.00-0.00); Lymphocytes # (Auto) 1.6 Thou/mm3 (1.0-4.8); Lymphocytes % (Auto) 11 % (10-50); Mean Corpuscular HGB Conc 33.4 g/dl (31.0-37.0); Mean Corpuscular Hemoglobin 28.5 pg (25.0-35.0); Mean Corpuscular Volume 85 fL (80-100); Monocytes # (Auto) 1.3 Thou/mm3 (0.0-0.8); Monocytes % (Auto) 9 % (0-12); Neutrophils # (Auto) 12.1 Thou/mm3 (1.8-7.7); Neutrophils % (Auto) 79 % (37-80); Nucleated Red Blood Cell % 0 /100 WBC (0); Platelet Count 159 Thou/mm3 (140-440); RDW Standard Deviation 47.8 fL (36.4-46.3); Red Blood Count 3.37 Miln/mm3 (4.00-5.20); White Blood Count 15.2 Thou/mm3 (4.5-11.0)
[2025-01-13] MEDS: CLINDAMYCIN 900MG IVPB 900 MG in PRE-MIXED 1 BAG 50 MG IV (06:12)
--- NOTE | 2025-01-13 07:16 | ESPR_ITS ---
Subjective Subjective Interval history: Delivery type: Patient doing well this morning. No acute complaints. Ambulating, tolerating p.o. and voiding without difficulty. HTN/Pre-Eclampsia screen: No chest pain, shortness of breath, headache, visual changes, epigastric or right upper quadrant pain. Breast-feeding, lochia diminishing. Bowel: Flatus+/ BM+ Exam Vital Signs Temp Pulse Resp BP Pulse Ox O2 Del Method O2 Flow Rate 97.9 F 88 20 109/70 97 Room Air 8 01/13/25 04:20 01/13/25 04:20 01/13/25 04:20 01/13/25 04:20 01/13/25 04:20 01/13/25 04:20 01/12/25 00:57 Constitutional Constitutional: no acute distress Routine HEENT Exam Head: Present normocephalic and atraumatic Eye: Present EOMI and PERRL ENT: Present mucous membranes moist Routine Neck Exam Neck: Present supple and trachea midline Routine Respiratory Exam Respiratory: Present chest non-tender, lungs clear, normal breath sounds and no resp distress Routine Cardiovascular Exam Cardiovascular: Present RRR Routine Abdominal Exam Abdominal: Present soft and normoactive bowel sounds Routine Extremities Exam Extremities: Present full ROM Routine Skin Exam Skin: Present intact, dry and warm Routine Neurological Exam Neurological: Present alert, oriented X3 and CN II-XII intact Routine Psychiatric Exam Psychiatric: Present normal affect and normal thought process Objective Labs 01/13/25 04:31 Labs: Laboratory Results - last 24 hr 01/13/25 04:31 WBC 15.2 H RBC 3.37 L Hgb 9.6 L Hct 28.7 L MCV 85 MCH 28.5 MCHC 33.4 RDW Std Deviation 47.8 H Plt Count 159 D Neut % (Auto) 79 Lymph % (Auto) 11 Gregory % (Auto) 9 Eos % (Auto) 0 Baso % (Auto) 0 Neut # (Auto) 12.1 H Lymph # (Auto) 1.6 Gregory # (Auto) 1.3 H Eos # (Auto) 0.0 Baso # (Auto) 0.0 Immature Gran # (Auto) 0.15 H Absolute Nucleated RBC 0.00 Immature Gran % 1 H Nucleated RBC % 0 Assessment & Plan Problem List (1) Encounter for supervision of high risk in third trimester, antepartum: Status: Acute (2) Diet controlled gestational diabetes mellitus (GDM) in third trimester: Status: Acute (3) Chorioamnionitis: Status: Acute (4) delivery delivered: Status: Acute Assessment and plan: PPD/POD#2 1. Continue routine care, repeat platelet count is 1 52,000 2. Transition to PO meds. 3. Encourage to ambulate/ breast-feed 4. Anticipate discharge home today. Time Spent With Patient Time: Total time spent is greater than 50% in coordination of care (as documented) at patient's floor/unit and/or counseling patient:
--- NOTE | 2025-01-13 07:17 | ESDS_ITS ---
DS: Providers Provider Date of admission: 01/09/25 09:23 Primary care physician: Physician No Primary/Family Admitting Provider: Douglas Forrest MD Attending Provider on Admission: Vania Lopez CNM Consults: 01/11/25 13:15 Referral Routine Comment: Attending Provider on DC: Douglas Forrest MD Discharging Provider: Douglas Forrest MD DS: Diagnosis Discharge Diagnosis (1) delivery delivered: Status: Acute (2) Chorioamnionitis: Status: Acute Problem List Completed Was Problem List Reviewed/Reconciled?: Yes Summary/Hosp Course Brief History: 18-year-old 2 para 0 admit to labor and delivery for induction of labor. History of GDM on diet. Good control. Patient's last period was April 20, 2024. Estimated due date is January 16, 2025. Patient unsure dates. First ultrasound was August 23. Patient was 19 weeks and this confirmed dates and patient had a 23-week anatomy scan as well and that also showed normal anatomy. Denies social habits. Denies surgery. Denies chronic illness. Patient is O+, antibody screen negative, RPR nonreactive, rubella immune, hepatitis B negative, HIV negative, hep C negative, GC and Chlamydia were negative. Patient had abnormal 1 hour and 3-hour was abnormal. NIPT and carrier screens were all normal. GBS negative. And patient's anatomy scan showed normal anatomy. Peripartum Data Delivery Method: Low Transverse Episiotomy Description: None Procedures: Procedures Operation Date: 01/11/25 11:15 Actual Procedure Side Surgeon p in OB Not Applicable Douglas Forrest MD Time Spent with Patient Time attestation: Total time spent providing and/or coordinating discharge services: Exam Vital Signs Temp Pulse Resp BP Pulse Ox O2 Del Method O2 Flow Rate 97.9 F 88 20 109/70 97 Room Air 8 01/13/25 04:20 01/13/25 04:20 01/13/25 04:20 01/13/25 04:20 01/13/25 04:20 01/13/25 04:20 01/12/25 00:57 Discharge Plan Plan Patient Disposition: HOME (Self Care) Patient condition on transfer: Stable Prescriptions/Referrals Prescriptions/Med Rec: New hydrocodone-acetaminophen 5-325 mg tablet 1 tab PO Q6H MDD 4 PRN (Reason: pain) 7 Days Qty: 28 0RF docusate sodium [Stool Softener] 100 mg capsule 100 mg PO QDAY 30 Days Qty: 30 0RF ibuprofen 600 mg tablet 600 mg PO Q6H MDD 4 PRN (Reason: fever or pain) 10 Days Qty: 40 0RF Continued Vitamin 27 mg iron- 800 mcg tablet 1 tab PO QDAY Referrals: No Primary/Family,Physician [Primary Care Provider] - Patient/Caregiver Discharge Instructions Education Materials: C Section Dc, After Delivery [place] Concerns, Breast Care After , After a Print Language: Macedonian Stand Alone Forms: Sheila Award Info., Patient Portal Info Letter, DC from Surgery Planned Discharge Date 01/13/25
[2025-01-13] MEDS: DOCUSATE SOD 100 MG CAPSULE PO (08:09)
[2025-01-13 08:10] VITALS: BP 115/77; PULSE 92; RESP 16; TEMP 36.8; O2SAT 98
--- NOTE | 2025-01-13 09:20 | PC.LAC ---
Mom states that went well overnight. She states that she was able to get baby to latch onto the right breast, which was causing her difficulty yesterday. She feels like baby is doing well. Reassured her that if she is having difficultites that she has the Resource centers information and can follow up with us anytime she needs.
[2025-01-13] MEDS: GENTAMICIN/NS 80 MG IVPB 80 MG in PRE-MIXED 1 BAG 50 MG IV (10:09)
[2025-01-13] MEDS: HYDROcodone/APAP 5/325 TABLET 1 TAB PO (15:32)
== END 2025-01-13 15:58 | disposition home or self-care (01) | DRG 540 ==
LOC: S4SX 01-11 10:36 → S4NX 01-11 11:10
PROVIDERS: Obstetrics & Gynecology; Admitting Provider Obstetrics & Gynecology; Visit Provider Advanced Practice Midwife
PROC: (CPT 59514; principal; 2025-01-11 11:00)
DX: O24.420 Gestational diabetes mellitus in childbirth, diet controlled (principal); Z37.0 Single live birth; Z3A.39 39 weeks gestation of pregnancy; O41.1230 Chorioamnionitis, third trimester, not applicable or unspecified; O76 Abnormality in fetal heart rate and rhythm complicating labor and delivery; O62.0 Primary inadequate contractions; O61.1 Failed instrumental induction of labor; M41.9 Scoliosis, unspecified
CPT/HCPCS: 36415; 76805; 85025; 86780; 86850; 86900; 86901; A4314; A4649; J0290; J0689; J1100; J1171; J1580; J1885; J2210; J2274; J2371; J2405; J2590; J2704; J2765; J3010; J3490; J7120; S0077; A9270; J0736; J2270

== ENCOUNTER 2025-02-17 10:17 | Outpatient (AMB) | payer MEDICAID, SELFPAY ==
--- NOTE | 2025-02-17 10:28 | AMBOBPPN_ITS ---
Vital Signs 02/17/25 10:29 Height 1.52 m Height Method Stated Weight 60.441 kg Weight Measurement Method Standing Scale BMI 26.2 BP 105/66 Blood Pressure Source Automatic Cuff Blood Pressure Location Right Upper Arm Position Sitting Respiration 17 Pulse 69 Pulse Source Monitor Temp 98.1 F Temp Source Temporal Artery Scan Pulse Oximetry (%) 98 Oxygen Delivery Method Room Air Allergies/Home Meds Allergies & Medications Allergies No Known Allergies Allergy (Verified 02/17/25 10:30) Medication Reconciliation vits no.130-ferrous fum 27 mg iron-folic acid 800 mcg tablet ( Vitamin) 1 tab PO QDAY 10/12/24 [History Confirmed 02/17/25] Intake Visit Data Collection New Patient or Established: Established Patient (seen at [facility] within 3 years) Reason for Visit:: Seen by Clinical Staff ONLY (RN/MA): No Bow Maker Production Required: No Do You Feel Safe at Home: Yes Authorities Contacted: N/A PCP or OBGYN visit in last 3 months: Yes Date of Last PCP or OBGYN visit: 01/13/25 Hx Now: No Are you currently on any form of Control: No Pain Present Currently: No Pain Scale Used: [place]/Numerical Pain scale:: 0 Smoking Status Smoking Status: Never smoker MEDICAL LAB TECHNICIAN: Past Medical History Past Medical History: No Hx Neurological Disorders, No Hx Cardiac Disorders, No Hx Cancer, No Hx Blood Disorders, No Hx Gastrointestinal Disorders, No Hx Renal Disease, No Hx Diabetes Mellitus Type 1 and No Hx Diabetes Mellitus Type 2 Questionnaires Covid-19 Vaccine Questionnaire Has patient been vacinated for Covid-19 Have you been vacinated for Covid-19: No Social History Living Situation History Marital Status: Lives With: Spouse Housing: House Tobacco History Smoking Status: Never smoker Second Hand Smoke Exposure: No Alcohol History Alcohol Intake: Never Domestic Abuse History Do You Feel Safe at Home: Yes EPDS - PP Depression Screening [place] Pospartum Depression Screen I have been able to laugh and see the funny side of things: (0) As much as I always could I have looked forward with enjoyment to things: (0) As much as I ever did I have blamed myself unnecessarily when things went wrong: (0) No, never I have been anxious or worried for no good reason: (0) No, not at all I have felt scared or panicky for no very good reason: (0) No, not at all Things have been getting on top of me: (0) No, I have been coping as well as ever I have been so unhappy that I have had difficulty sleeping: (0) No, not at all I have felt sad or miserable: (0) No, not at all I have been so unhappy that I have been crying: (0) No, never The thought of harming myself has occurred to me: (0) Never EPDS completed yes Care OB Visit Log OB Flowsheet Initial Weight: Not Recorded Date -?-?-?-?-?-?-?-?-?-?-?-?- EGA Weight BP Alb Glu CTX Pres Fundal ht FHR Mov Dilation Station Effacement Hx Notes Visit Note 11/22/24 -?-?-?-?-?-?-?-?-?-?-?-?- 32w 1d 65.771 kg 111/74 absent cephalic 31 141 active 18-year-old 2 para 0 for first visit OB clinic. Patient has GDM diet-controlled. Blood sugars are within range 95% of the goal. Patient is a transfer from [facility], [place]. Doing well. Reports movement. No OB complaints. Hemoglobin A1c today. Continue GDM diet. Continue with monitoring glucose 4 times a day. Schedule NST BPP weekly. Reviewed movement counts. 12/06/24 -?-?-?-?-?-?-?-?-?-?-?-?- 34w 1d 66.224 kg 112/75 absent cephalic 34 147 active compliant with week nst/bpp for + gdm, sugars at goal 95%, continue fkc bid, continue GDM diet, walk 40 minute daily, continue PNV, c/o + URI. GBS NV, no PTL complaints 12/20/24 -?-?-?-?-?-?-?-?-?-?-?-?- 36w 1d 68.266 kg 118/74 absent cephalic 35 156 active fetus active, no c/o labor,no leaking,no bleeding. + GDM/diet, continue week NST/BPP, fkc bid, GBS today fetus active, no c/o labor,n o leaking,no bleeding. + GDM/diet, continue week NST /BPP, fkc bid, GBS today, sugar at goal 90%, IOL 01/09/25 12/27/24 -?-?-?-?-?-?-?-?-?-?-?-?- 37w 1d 70.023 kg 122/76 absent cephalic 156 active sugars at goal 90%, fetus active, no complaints of leaking or bleeding. compliant with GDM diet and week NST/BPP.GBS-, continue PNV. discuss labor precaution and fkc bid. RTC 1 week, IOL 01/10 sugars at goal 90%, fetus ac tive, no complaints of leaking or bleeding. compliant with GDM diet and week NST/BPP.GBS-, continue PNV. discuss labor precaution and fkc bid. RTC 1 week, IOL 01/10. 01/04/25 -?-?-?-?-?-?-?-?-?-?-?-?- 38w 2d 71.441 kg 132/83 occasional cephalic 37 147 active per patient, sugars at goal 95%, compliant with GDM diet and weekly NST/BPP, fetus active, NST/BPP today, IOL scheduled for 01/09. patient will stop working 01/05/25 continue weekly NST/BPP, continue to monitor BS and GDM diet. FKC bid. discuss discussed IOL. labor precaution reviewed with PT, NST/BPP today, rtc 1 week. start disability 01/05/25 YOSEPH Calculator Estimated Delivery Date Method Current WG Current Estimate 01/16/25 Ultrasound #1 44w 4d Other Estimates 01/16/25 LMP (Certain) 44w 4d HPI Interval History: 19-year-old 1 para 1 for 6-week . Patient was a primary C- section for failed progress. Patient was induced at 39 weeks for GDM diet. Denies social habits. Denies surgery. Denies chronic illness. Patient is happy she denies any signs of depression. She has good family support. Father the baby is involved. Breast-feeding without difficulty. Patient plans to use condoms. They are not sexually active yet Delivery type: (x1) Was labor induced: yes and medically indicated (GDM) Gestational age at delivery (weeks): 39 Delivery date: 01/11/25 Delivering provider: unknown Delivery complications: No Is patient infant: Yes Is patient sexually active: No Contraception planned: condom Review of Systems Review of Systems ROS limited to current MEDICAL LAB TECHNICIAN complaints: Yes Exam Narrative Physical exam: Euthyroid. Breasts are soft nontender. No masses. No signs of infection. Abdomen is soft nontender. Low transverse incision is intact no signs or symptoms of infection. Uterus well involuted and 3 below the umbilicus. Perineum is intact. Negative Homans' sign. 2+ DTRs. No edema Office Procedures OB Clinic LOC & Office Proc's Nursing/Assessment Patient Status: Established Patient OB Clinic Nursing Assessment: Medication Reconciliation, Update PMH in EMR and Vital Signs OB Clinic Coordination of Care: Complex Care and Chronic Disease 1-5, Consent,records obtained, informed consent, Education Simp Pt/Fam and Staff clarify orders Established Patient Charge Established Patient Point Assignment: 85 Post Follow-up Visit Post Follow up Visit: Yes Assessment & Plan Diagnosis / Problem List (1) Routine Follow-Up: (2) 6 weeks follow-up: Status: Acute Plan Continue GDM diet. Continue vitamins. Increase fluids. I reviewed diet and weight gain. Walk 40 minutes a day. I scheduled a 2-hour GTT for patient to do. If abnormal I will refer her to her family practice for diabetic management. I offered control options patient. She elects to use condoms. And a Pap smear will be next year on her 20st birthday Care Reviewed delivery summary and any complications: Yes Perineal / incision healing noted: Yes Screened for depression: Yes Depression counseling provided: No Discussed family planning & contraception: Yes Contraception planned: condom Counseling on safe resumption of sexual activity: Yes Counseling on gradual excercise: Yes Discussed and concerns (describe), provided support: Yes Referred to commodity specialist: Yes Counseled on good nutrition, hydration, and self care: Yes Reviewed vaccine status: No Chronic & current problems reconciled on problem list: Yes Infant care discussed; questions answered: feeding Follow up: routine/prn Additional counseling & anticipatory guidance provided: rtc 1 year pap, order 2 hr gtt, continue diet and walk 40 minutes daily. noam nue PNV, fluid. (FP) Tobacco Smoking Status: Never smoker
[2025-02-17 10:29] VITALS: BP 105/66; PULSE 69; RESP 17; TEMP 36.7; O2SAT 98; BMI 26.2
== END 2025-02-17 10:53 | disposition home or self-care (01) ==
LOC: HODSOBC 10:17
PROVIDERS: Supervising Provider Advanced Practice Midwife; Visit Provider Advanced Practice Midwife
DX: Z39.2 Encounter for routine postpartum follow-up (principal); O24.430 Gestational diabetes mellitus in the puerperium, diet controlled; Z39.1 Encounter for care and examination of lactating mother